=== PATIENT | male | born 1980 | race African-American/Black ===

== ENCOUNTER 2019-02-08 15:45 | Inpatient (IN) ==
[2019-02-08] MEDS ORDERED: hydrALAZINE 20 MG/1 ML VIAL IV STA (16:05)
[2019-02-08] MEDS ORDERED: AZITHROMYCIN INJ 500 MG in SODIUM CHLORIDE 0.9% 250 ML IV STA (16:05)
[2019-02-08] MEDS ORDERED: methylPREDNISolone SOD SUC 125 MG/2 ML VIAL IV STA (16:05)
[2019-02-08] MEDS ORDERED: ALBUTEROL/IPRATROPIUM 3 ML NEB RESP TX STA (16:05)
[2019-02-08 16:41] LABS: Basophils % 0.8 % (0.0-0.8); Eosinophils # 0.1 10*3/uL (0.0-0.87); Eosinophils % 2.9 % (0.00-10.9); Hematocrit 42.5 VOL% (42.0-52.0); Immature Granulocytes % 0.2 %; Immature Granulocytes Absolute 0.01 #; Lymphocytes # 2.4 10*3/uL (1.4-4.0); Lymphocytes % 49.6 % (21.2-54.2); Mean Corpuscular HGB Conc 32.9 GM/DL (32-36); Mean Corpuscular Volume 82.7 FL (87-102); Monocytes % 9.8 % (1.7-12.7); Neutrophils % 36.7 % (38.7-73.9); Platelet Count 246 T/CUMM (130-400); Red Blood Count 5.14 MC/CUMM (3.8-5.5); Red Cell Distribution Width 14.6 % (9.3-17.3); White Blood Count 4.8 T/CUMM (4-12)
[2019-02-08 16:44] LABS: Apearance,Urine CLEAR (Clear); Bilirubin,Urine Negative (Negative); Blood, Urine Small mg/dL (Negative); Glucose,Urine (UA) Negative (Negative); Ketones,Urine Negative (Negative); Mucus,Urine Occasional /LPF (Occasional); Nitrite,Urine Negative (Negative); Protein,Urine 30 MG/DL; RBC,Urine 1 /HPF (0-4); Squamous Epithelial Cell,Urine Occasional /HPF (0-10); Urine Color Yellow (Yellow); Urine Specific Gravity 1.015 (1.001-1.035); WBC,Urine 2 /HPF (0-6)
[2019-02-08 16:51] LABS: INR 0.9; PT Patient Result 10.1 SECS (9.6-12.2); Partial Thromboplastin Time 32.9 SECS (20.8-36.0)
[2019-02-08 17:03] LABS: Alanine Aminotransferase 18 U/L (16-61); Albumin 3.4 G/DL (3.4-5.0); Alkaline Phosphatase 70 U/L (45-117); Aspartate Amino Transferase 26 U/L (0-37); Blood Urea Nitrogen 17 MG/DL (7-18); Calcium 8.6 MG/DL (8.5-10.1); Glucose 81 MG/DL (74-106); Osmolality,Calculated 279.4 MOS/KG (273-304); Total Protein 7.6 G/DL (6.4-8.3)
[2019-02-08] MEDS ORDERED: POTASSIUM BICARB EFFERVESCENT 25 MEQ TABLET PO ONE (17:13)
[2019-02-08] MEDS ORDERED: NITROGLYCERIN 2% OINT 1 INCH/GM PACK TOP STA (17:13)
[2019-02-08] MEDS ORDERED: FUROSEMIDE 40 MG/4 ML VIAL IV STA (17:16)
[2019-02-08 17:29] LABS: Eosinophils 2 % (0-10); Lymphocytes 44 % (20-55); Platelet Estimate Adequate; Segmented Neutrophils 39 % (50-85); Total Cells Counted 100
[2019-02-08] MEDS ORDERED: POTASSIUM CHLORIDE 20 MEQ TABLET PO PRN (18:20)
[2019-02-08] MEDS ORDERED: ONDANSETRON 4 MG/2 ML VIAL IV PRN (18:20)
[2019-02-08] MEDS ORDERED: hydrALAZINE 20 MG/1 ML VIAL IV PRN (18:27)
[2019-02-08] MEDS ORDERED: ENOXAPARIN 80 MG/0.8 ML SYRINGE SUBCUT SCH (18:30)
[2019-02-08] MEDS ORDERED: ENOXAPARIN 80 MG/0.8 ML SYRINGE SUBCUT ONE (18:58)
[2019-02-08] MEDS: CARVEDILOL 12.5 MG TABLET PO SCH (22:12)
[2019-02-08] MEDS: MINOXIDIL 2.5 MG TABLET PO SCH (22:13)
[2019-02-08] MEDS: CHLORTHALIDONE 25 MG TABLET PO SCH (22:13)
[2019-02-08] MEDS: ATORVASTATIN 40 MG TABLET PO SCH (22:13)
[2019-02-08] MEDS: ISOSORBIDE MONONITRATE 60 MG TABLET PO SCH (22:14)
[2019-02-08] MEDS: METOPROLOL TARTRATE 100 MG TABLET PO SCH (22:14)
[2019-02-09 01:28] LABS: Albumin 3.4 G/DL (3.4-5.0); Bilirubin,Total 1.2 MG/DL (0.2-1.0); Osmolality,Calculated 286.4 MOS/KG (273-304); Thyroid Stimulating Hormone 0.316 uIU/ml (0.358-3.74); Total Protein 7.6 G/DL (6.4-8.3)
[2019-02-09 01:32] LABS: Basophils % 0.2 % (0.0-0.8); Hematocrit 42.5 VOL% (42.0-52.0); Hemoglobin 13.9 GM/DL (14.0-18.0); Immature Granulocytes % 0.2 %; Immature Granulocytes Absolute 0.01 #; Lymphocytes # 0.6 10*3/uL (1.4-4.0); Lymphocytes % 12.1 % (21.2-54.2); Mean Corpuscular HGB Conc 32.7 GM/DL (32-36); Mean Corpuscular Volume 81.6 FL (87-102); Monocytes % 1.1 % (1.7-12.7); Neutrophils % 86.4 % (38.7-73.9); Platelet Count 263 T/CUMM (130-400); Red Blood Count 5.21 MC/CUMM (3.8-5.5); Red Cell Distribution Width 14.4 % (9.3-17.3); White Blood Count 4.6 T/CUMM (4-12)
[2019-02-09 02:57] LABS: Lymphocytes 14 % (20-55); Segmented Neutrophils 86 % (50-85); Total Cells Counted 100
[2019-02-09 02:58] LABS: Hypochromasia Slight; Microcytosis Slight; Platelet Estimate Normal; Target Cells Few
[2019-02-09] MEDS: POTASSIUM CHLORIDE 20 MEQ TABLET PO PRN ×2 (03:37→06:20)
[2019-02-09] MEDS ORDERED: amLODIPine 10 MG TABLET PO SCH (09:00)
[2019-02-09] MEDS: OLMESARTAN 20 MG TABLET PO SCH (09:10)
[2019-02-09] MEDS: MINOXIDIL 2.5 MG TABLET PO SCH ×2 (09:11→22:22)
[2019-02-09] MEDS: CARVEDILOL 12.5 MG TABLET PO SCH ×2 (09:11→16:24)
[2019-02-09] MEDS: CHLORTHALIDONE 25 MG TABLET PO SCH ×2 (09:11→22:25)
[2019-02-09] MEDS: ISOSORBIDE MONONITRATE 60 MG TABLET PO SCH ×2 (09:11→22:23)
[2019-02-09] MEDS: PANTOPRAZOLE 40 MG TABLET PO SCH (09:12)
[2019-02-09] MEDS: METOPROLOL TARTRATE 100 MG TABLET PO SCH ×2 (09:12→22:29)
[2019-02-09] MEDS: ENOXAPARIN 40 MG/0.4 ML SYRINGE SUBCUT SCH (10:23)
[2019-02-09 12:01] LABS: Barbiturates Screen,Urine Negative (Negative); Benzodiazepines Screen,Urine Negative (Negative); Cannabinoid Screen,Urine Positive (Negative); Opiate Screen,Urine Negative (Negative); Phencyclidine Screen,Urine Negative (Negative)
[2019-02-09] MEDS: ATORVASTATIN 40 MG TABLET PO SCH (22:22)
[2019-02-09] MEDS: buPROPion SR 150 MG TABLET PO SCH (22:23)
[2019-02-09] MEDS: EPLERENONE 25 MG TABLET PO SCH (22:24)
[2019-02-09] MEDS: DILTIAZEM CD 180 MG CAPSULE PO SCH (22:26)
[2019-02-10] MEDS: OLMESARTAN 20 MG TABLET PO SCH (08:44)
[2019-02-10] MEDS: buPROPion SR 150 MG TABLET PO SCH ×2 (08:45→21:35)
[2019-02-10] MEDS: predniSONE 10 MG TABLET PO SCH (08:45)
[2019-02-10] MEDS: MINOXIDIL 2.5 MG TABLET PO SCH ×2 (08:45→21:34)
[2019-02-10] MEDS: PANTOPRAZOLE 40 MG TABLET PO SCH (08:45)
[2019-02-10] MEDS: ISOSORBIDE MONONITRATE 60 MG TABLET PO SCH ×2 (08:45→21:36)
[2019-02-10] MEDS: ASPIRIN EC 81 MG TABLET PO SCH (08:45)
[2019-02-10] MEDS: DILTIAZEM CD 180 MG CAPSULE PO SCH ×2 (08:45→21:35)
[2019-02-10] MEDS: CARVEDILOL 12.5 MG TABLET PO SCH ×2 (08:46→17:52)
[2019-02-10] MEDS: METOPROLOL TARTRATE 100 MG TABLET PO SCH ×2 (08:46→21:34)
[2019-02-10] MEDS: CHLORTHALIDONE 25 MG TABLET PO SCH ×2 (08:46→21:34)
[2019-02-10] MEDS ORDERED: ASPIRIN EC 81 MG TABLET PO SCH (09:00)
[2019-02-10] MEDS: EPLERENONE 25 MG TABLET PO SCH ×2 (09:04→21:35)
[2019-02-10] MEDS: ENOXAPARIN 40 MG/0.4 ML SYRINGE SUBCUT SCH (09:05)
[2019-02-10] MEDS: ATORVASTATIN 40 MG TABLET PO SCH (21:36)
[2019-02-11 08:59] LABS: Calcium 9.4 MG/DL (8.5-10.1); Osmolality,Calculated 284.3 MOS/KG (273-304)
[2019-02-11] MEDS: MINOXIDIL 2.5 MG TABLET PO SCH ×2 (09:15→21:39)
[2019-02-11] MEDS: PANTOPRAZOLE 40 MG TABLET PO SCH (09:15)
[2019-02-11] MEDS: ASPIRIN EC 81 MG TABLET PO SCH (09:17)
[2019-02-11] MEDS: OLMESARTAN 20 MG TABLET PO SCH (09:17)
[2019-02-11] MEDS: buPROPion SR 150 MG TABLET PO SCH ×2 (09:17→21:39)
[2019-02-11] MEDS: CHLORTHALIDONE 25 MG TABLET PO SCH ×2 (09:18→21:38)
[2019-02-11] MEDS: predniSONE 10 MG TABLET PO SCH (09:19)
[2019-02-11] MEDS: ISOSORBIDE MONONITRATE 60 MG TABLET PO SCH ×2 (09:19→21:39)
[2019-02-11] MEDS: EPLERENONE 25 MG TABLET PO SCH ×2 (09:25→21:39)
[2019-02-11] MEDS: ENOXAPARIN 40 MG/0.4 ML SYRINGE SUBCUT SCH (09:49)
[2019-02-11] MEDS: CARVEDILOL 12.5 MG TABLET PO SCH ×2 (11:12→17:23)
[2019-02-11] MEDS: DILTIAZEM CD 180 MG CAPSULE PO SCH ×2 (11:13→21:38)
[2019-02-11] MEDS: METOPROLOL TARTRATE 100 MG TABLET PO SCH (11:14)
[2019-02-11] MEDS: ATORVASTATIN 40 MG TABLET PO SCH (21:39)
[2019-02-12] MEDS: CHLORTHALIDONE 25 MG TABLET PO SCH ×2 (09:55→20:57)
[2019-02-12] MEDS: MINOXIDIL 2.5 MG TABLET PO SCH ×2 (09:55→20:57)
[2019-02-12] MEDS: DILTIAZEM CD 180 MG CAPSULE PO SCH ×2 (09:55→20:57)
[2019-02-12] MEDS: ASPIRIN EC 81 MG TABLET PO SCH (09:55)
[2019-02-12] MEDS: ISOSORBIDE MONONITRATE 60 MG TABLET PO SCH ×2 (09:55→20:56)
[2019-02-12] MEDS: CARVEDILOL 12.5 MG TABLET PO SCH ×2 (09:55→16:03)
[2019-02-12] MEDS: OLMESARTAN 20 MG TABLET PO SCH (09:55)
[2019-02-12] MEDS: buPROPion SR 150 MG TABLET PO SCH ×2 (09:56→20:56)
[2019-02-12] MEDS: EPLERENONE 25 MG TABLET PO SCH ×2 (09:56→20:57)
[2019-02-12] MEDS: predniSONE 10 MG TABLET PO SCH (09:56)
[2019-02-12] MEDS: PANTOPRAZOLE 40 MG TABLET PO SCH (09:56)
[2019-02-12] MEDS: ENOXAPARIN 40 MG/0.4 ML SYRINGE SUBCUT SCH (10:02)
[2019-02-12] MEDS: ATORVASTATIN 40 MG TABLET PO SCH (21:00)
[2019-02-13 04:38] LABS: Basophils % 0.6 % (0.0-0.8); Eosinophils % 0.6 % (0.00-10.9); Hematocrit 38.8 VOL% (42.0-52.0); Hemoglobin 12.5 GM/DL (14.0-18.0); Immature Granulocytes % 0.2 %; Immature Granulocytes Absolute 0.01 #; Lymphocytes % 47.6 % (21.2-54.2); Mean Corpuscular HGB Conc 32.2 GM/DL (32-36); Mean Corpuscular Volume 82.7 FL (87-102); Mean Platelet Volume 10.4 FL (9.6-12.0); Monocytes % 7.7 % (1.7-12.7); Neutrophils % 43.3 % (38.7-73.9); Platelet Count 294 T/CUMM (130-400); Red Blood Count 4.69 MC/CUMM (3.8-5.5); Red Cell Distribution Width 14.5 % (9.3-17.3); White Blood Count 6.3 T/CUMM (4-12)
[2019-02-13 05:18] LABS: Albumin 3.4 G/DL (3.4-5.0); Bilirubin,Total 0.7 MG/DL (0.2-1.0); Calcium 8.9 MG/DL (8.5-10.1); Osmolality,Calculated 293.6 MOS/KG (273-304); Total Protein 6.9 G/DL (6.4-8.3)
[2019-02-13 08:47] VITALS: BP 146/91
[2019-02-13] MEDS: ISOSORBIDE MONONITRATE 60 MG TABLET PO SCH (08:58)
[2019-02-13] MEDS: MINOXIDIL 2.5 MG TABLET PO SCH (08:58)
[2019-02-13] MEDS: OLMESARTAN 20 MG TABLET PO SCH (08:59)
[2019-02-13] MEDS: ASPIRIN EC 81 MG TABLET PO SCH (08:59)
[2019-02-13] MEDS: buPROPion SR 150 MG TABLET PO SCH (08:59)
[2019-02-13] MEDS: predniSONE 10 MG TABLET PO SCH (08:59)
[2019-02-13] MEDS: EPLERENONE 25 MG TABLET PO SCH (08:59)
[2019-02-13] MEDS: DILTIAZEM CD 180 MG CAPSULE PO SCH (09:00)
[2019-02-13] MEDS: CARVEDILOL 12.5 MG TABLET PO SCH (09:00)
[2019-02-13] MEDS: PANTOPRAZOLE 40 MG TABLET PO SCH (09:01)
[2019-02-13] MEDS: CHLORTHALIDONE 25 MG TABLET PO SCH (09:01)
[2019-02-13] MEDS: ENOXAPARIN 40 MG/0.4 ML SYRINGE SUBCUT SCH (09:02)
== END 2019-02-13 10:00 | disposition home or self-care (01) | DRG 305 ==
LOC: N.ED 15:45 → N.EDINP 18:20 → N.TELEN 19:12
PROVIDERS: ADMIT Internal Medicine; ATTEND Internal Medicine